=== PATIENT | female | born 1960 | race Caucasian/White ===

== ENCOUNTER 2024-08-04 07:44 | Day surgery (SDC) | payer BC, MEDICARE ==
[2024-08-04] MEDS ORDERED: Glycopyrrolate 0.2 MG/ML 5 ML MDV IV ONE (07:45)
[2024-08-04] MEDS ORDERED: Propofol 200 MG/20 ML SDV IV ONE (07:45)
[2024-08-04] MEDS ORDERED: Sodium Chloride 0.9% 10 ML Syringe FLUSH PRN (07:45)
[2024-08-04] MEDS ORDERED: Lidocaine 2% 100 MG/5 ML Syringe IVPUSH ONE (07:45)
[2024-08-04] MEDS ORDERED: Midazolam 1 MG/ML 2 ML SDV IV ONE (07:45)
[2024-08-04] MEDS: Lactated Ringers 1,000 ML IV SCH (08:44)
[2024-08-04] MEDS: Simethicone Drops 40 MG/0.6 ML 30 ML Bottle ONE (09:59)
[2024-08-04 12:04] VITALS: BP 117/75; PULSE 80
== END 2024-08-04 11:45 | disposition home or self-care (01) ==
LOC: FB.SDS 07:44
PROVIDERS: ATTEND Surgery
DX: Z12.11 Encounter for screening for malignant neoplasm of colon (principal); K63.5 Polyp of colon; K57.30 Diverticulosis of large intestine without perforation or abscess without bleeding; K58.9 Irritable bowel syndrome, unspecified; E66.9 Obesity, unspecified; E11.9 Type 2 diabetes mellitus without complications; Z79.899 Other long term (current) drug therapy; Z79.84 Long term (current) use of oral hypoglycemic drugs; Z79.4 Long term (current) use of insulin; Z79.82 Long term (current) use of aspirin; Z87.891 Personal history of nicotine dependence; Z68.37 Body mass index [BMI] 37.0-37.9, adult
CPT/HCPCS: 00811; 82947; 88305; A9270-GY; J1596; J2250; J2704; J7120